=== PATIENT | female | born 1945 | race Caucasian/White ===

== ENCOUNTER → 2018-11-12 17:20 | Outpatient (CLI) | payer MEDICARE, OTHER, SELFPAY ==
[2018-11-11 14:50] VITALS: BMI 25.9
== END ==
PROVIDERS: Referring Provider Podiatrist; Visit Provider Podiatrist
DX: L03.116 Cellulitis of left lower limb (principal)
CPT/HCPCS: 87070; 87075; 87077; 87186; 87205